=== PATIENT | male | born 1965 | race Caucasian/White ===

== ENCOUNTER → 2019-05-11 | Outpatient (REF) | payer BC ==
[2019-05-11 12:33] LABS: ALBUMIN 4.1 GM/DL (3.2-5.2); ALT/SGPT 35 U/L (12-78); BILIRUBIN,TOTAL 0.4 MG/DL (0.2-1.0); BLOOD UREA NITROGEN 16 MG/DL (7-18); CALCIUM LEVEL 8.9 MG/DL (8.5-10.1); CARBON DIOXIDE LEVEL 27 MEQ/L (21-32); CHLORIDE LEVEL 106 MEQ/L (98-107); CHOLESTEROL LEVEL 173 MG/DL (<200); CREATININE FOR GFR 1.06 MG/DL (0.70-1.30); GLOMERULAR FILTRATION RATE > 60.0 (>56); GLUCOSE, FASTING 195 MG/DL (70-100); HDL CHOLESTEROL 31 MG/DL (>40); LDL CHOLESTEROL 96 MG/DL (<100); NON-HDL-C 142 MG/DL; POTASSIUM SERUM 4.3 MEQ/L (3.5-5.1); SODIUM LEVEL 138 MEQ/L (136-145); TOTAL PROTEIN 7.8 GM/DL (6.4-8.2); TRIGLYCERIDES LEVEL 228 MG/DL (<150)
== END ==
LOC: M SFHCCLAY 09:08
PROVIDERS: ATTEND Family Medicine
DX: Z00.00 Encounter for general adult medical examination without abnormal findings (principal); Z83.3 Family history of diabetes mellitus; Z13.1 Encounter for screening for diabetes mellitus; Z82.49 Family history of ischemic heart disease and other diseases of the circulatory system; Z13.220 Encounter for screening for lipoid disorders; Z80.42 Family history of malignant neoplasm of prostate; Z12.5 Encounter for screening for malignant neoplasm of prostate
CPT/HCPCS: 80053; 80061; G0103

== ENCOUNTER → 2019-05-13 | Outpatient (REF) | payer BC ==
[2019-05-13 13:09] LABS: HEMOGLOBIN A1c 9.2 %
[2019-05-13 13:27] LABS: CREATININE, URINE 60.3 MG/DL; MALB URINE SIEMENS 5.1 MG/L; MAU/CREAT RATIO 8.4 MCG/MG (0.0-30.0)
== END ==
LOC: M SFHCCLAY 08:01
PROVIDERS: ATTEND Family Medicine
DX: R73.01 Impaired fasting glucose (principal); R73.9 Hyperglycemia, unspecified

== ENCOUNTER → 2019-08-30 | Outpatient (REF) | payer BC ==
[2019-08-30 11:53] LABS: BLOOD UREA NITROGEN 18 MG/DL (7-18); CALCIUM LEVEL 8.7 MG/DL (8.5-10.1); CARBON DIOXIDE LEVEL 27 MEQ/L (21-32); CHLORIDE LEVEL 107 MEQ/L (98-107); CREATININE FOR GFR 0.93 MG/DL (0.70-1.30); GLOMERULAR FILTRATION RATE > 60.0 (>56); GLUCOSE, FASTING 112 MG/DL (70-100); POTASSIUM SERUM 4.6 MEQ/L (3.5-5.1); SODIUM LEVEL 142 MEQ/L (136-145)
== END ==
LOC: M SFHCCLAY 07:17
PROVIDERS: ATTEND Family Medicine
DX: E11.9 Type 2 diabetes mellitus without complications (principal)

== ENCOUNTER → 2019-12-13 | Outpatient (REF) | payer BC ==
[2019-12-13 13:14] LABS: BLOOD UREA NITROGEN 16 MG/DL (7-18); CALCIUM LEVEL 8.8 MG/DL (8.5-10.1); CARBON DIOXIDE LEVEL 30 MEQ/L (21-32); CHLORIDE LEVEL 106 MEQ/L (98-107); CREATININE FOR GFR 1.02 MG/DL (0.70-1.30); GLOMERULAR FILTRATION RATE > 60.0 (>56); GLUCOSE, FASTING 122 MG/DL (70-100); POTASSIUM SERUM 4.7 MEQ/L (3.5-5.1); SODIUM LEVEL 141 MEQ/L (136-145)
[2019-12-13 13:59] LABS: HEMOGLOBIN A1c 6.2 %
== END ==
LOC: M LABDRAWC 11:28
PROVIDERS: ATTEND Family Medicine
DX: E11.9 Type 2 diabetes mellitus without complications (principal)

== ENCOUNTER → 2020-03-03 | Outpatient (REF) | payer BC ==
[2020-03-03 12:06] LABS: HEMOGLOBIN A1c 6.3 %
[2020-03-03 12:18] LABS: BLOOD UREA NITROGEN 15 MG/DL (7-18); CALCIUM LEVEL 9.2 MG/DL (8.5-10.1); CARBON DIOXIDE LEVEL 28 MEQ/L (21-32); CHLORIDE LEVEL 106 MEQ/L (98-107); CREATININE FOR GFR 0.94 MG/DL (0.70-1.30); GLOMERULAR FILTRATION RATE > 60.0 (>56); GLUCOSE, FASTING 109 MG/DL (70-100); POTASSIUM SERUM 4.2 MEQ/L (3.5-5.1); SODIUM LEVEL 139 MEQ/L (136-145)
== END ==
LOC: M SFHCCLAY 08:26
PROVIDERS: ATTEND Family Medicine
DX: E11.9 Type 2 diabetes mellitus without complications (principal)

== ENCOUNTER → 2020-06-05 | Outpatient (REF) | payer BC ==
[2020-06-05 13:13] LABS: BLOOD UREA NITROGEN 19 MG/DL (7-18); CALCIUM LEVEL 9.3 MG/DL (8.5-10.1); CARBON DIOXIDE LEVEL 29 MEQ/L (21-32); CHLORIDE LEVEL 107 MEQ/L (98-107); CHOLESTEROL LEVEL 92 MG/DL (<200); CHOLESTEROL RISK RATIO 3.066 (<5); CREATININE FOR GFR 1.03 MG/DL (0.70-1.30); GLOMERULAR FILTRATION RATE > 60.0 (>56); GLUCOSE, FASTING 160 MG/DL (70-100); HDL CHOLESTEROL 30 MG/DL (>40); LDL CHOLESTEROL 40 MG/DL (<100); NON-HDL-C 62 MG/DL; POTASSIUM SERUM 5.1 MEQ/L (3.5-5.1); SODIUM LEVEL 143 MEQ/L (136-145); TRIGLYCERIDES LEVEL 112 MG/DL (<150)
[2020-06-05 13:24] LABS: MALB URINE SIEMENS 6.7 MG/L; MAU/CREAT RATIO 3.8 MCG/MG (0.0-30.0)
[2020-06-05 13:36] LABS: HEMOGLOBIN A1c 6.4 %
== END ==
LOC: M SFHCCLAY 07:50
PROVIDERS: ATTEND Family Medicine
DX: E78.5 Hyperlipidemia, unspecified (principal); E11.9 Type 2 diabetes mellitus without complications

== ENCOUNTER → 2020-08-25 | Outpatient (CLI) | payer BC ==
[~2020-08-25] MED LIST: ATOR1TAB21; METF10004; SYMB80INH
== END ==
LOC: M LABSMTC 10:04
PROVIDERS: ATTEND Anesthesiology
DX: Z01.812 Encounter for preprocedural laboratory examination (principal); Z20.822 Contact with and (suspected) exposure to COVID-19

== ENCOUNTER 2020-08-30 07:42 | Day surgery (SDC) | payer BC ==
[~2020-08-30] VITALS: Ht 165.1 cm; Wt 89.8 kg
[~2020-08-30 07:42] MED LIST changes: +NS 1,000 ML IV ONE; +propofoL 200 MG/20 ML VIAL As Ordered ONE
[2020-08-30] MEDS ORDERED: LIDOCAINE 2% 100MG/5ML SDV (FOR ANES.) As Ordered ONE (08:22)
--- NOTE | 2020-08-30 09:20 | ROOR ---
Patient Name: Arturo Roca Procedure Date: 08/30/2020 8:54 AM Date of : 1965 Age: 54 Room: [facility] Gender: Male Note Status: Finalized Procedure: Colonoscopy Indications: Screening for colorectal malignant neoplasm Providers: Sher Shelton DO Referring MD: Rachel REYES DO Requesting Provider: Medicines: Propofol per Anesthesia Complications: No immediate complications. Procedure: Pre-Anesthesia Assessment: - Prior to the procedure, a History and Physical was performed, and patient medications and allergies were reviewed. The patient is competent. The risks and benefits of the procedure and the sedation options and risks were discussed with the patient. All questions were answered and informed consent was obtained. Patient identification and proposed procedure were verified by the physician, the nurse, the manufacturing operations manager and the reliability technicians in the endoscopy suite. Mental Status Examination: alert and oriented. Airway Examination: normal oropharyngeal airway and neck mobility. Respiratory Examination: clear to auscultation. CV Examination: normal. Prophylactic Antibiotics: The patient does not require prophylactic antibiotics. Prior Anticoagulants: The patient has taken no previous anticoagulant or antiplatelet agents. ASA Grade Assessment: II - A patient with mild systemic disease. After reviewing the risks and benefits, the patient was deemed in satisfactory condition to undergo the procedure. The anesthesia plan was to use monitored anesthesia care (MAC). Immediately prior to administration of medications, the patient was re-assessed for adequacy to receive sedatives. The heart rate, respiratory rate, oxygen saturations, blood pressure, adequacy of pulmonary ventilation, and response to care were monitored throughout the procedure. The physical status of the patient was re-assessed after the procedure. The Colonoscope was introduced through the anus and advanced to the cecum, identified by appendiceal orifice and ileocecal valve. The colonoscopy was performed without difficulty. The patient tolerated the procedure well. Findings: Non-bleeding internal hemorrhoids were found during retroflexion. The hemorrhoids were mild and Grade II (internal hemorrhoids that prolapse but reduce spontaneously). Impression: - Non-bleeding internal hemorrhoids. - No specimens collected. Recommendation: - Patient has a contact number available for emergencies. The signs and symptoms of potential delayed complications were discussed with the patient. Return to normal activities tomorrow. Written discharge instructions were provided to the patient. - Repeat colonoscopy in 5-10 years for screening purposes. - Return to my office PRN. Procedure Code(s): --- Professional --- G0121, Colorectal cancer screening; colonoscopy on individual not meeting criteria for high risk Diagnosis Code(s): --- Professional --- Z12.11, Encounter for screening for malignant neoplasm of colon K64.1, Second degree hemorrhoids CPT copyright 2019 [employer]. All rights reserved. The codes documented in this report are preliminary and upon wheel borer review may be revised to meet current compliance requirements. Sher Shelton DO 08/30/2020 9:19:57 AM Electronically signed by Sher Shelton DO Number of Addenda: 0 Note Initiated On: 08/30/2020 8:54 AM Estimated Blood Loss: Estimated blood loss: none.
[2020-08-30 09:35] VITALS: BP 121/66
== END 2020-08-30 09:40 | disposition home or self-care (01) ==
LOC: M OPP 07:42
PROVIDERS: ATTEND Surgery
DX: Z12.11 Encounter for screening for malignant neoplasm of colon (principal); K64.1 Second degree hemorrhoids; E11.9 Type 2 diabetes mellitus without complications; G47.30 Sleep apnea, unspecified; Z79.84 Long term (current) use of oral hypoglycemic drugs; Z79.899 Other long term (current) drug therapy

== ENCOUNTER → 2020-09-13 | Outpatient (CLI) | payer BC ==
[~2020-09-13] MED LIST changes: -NS 1,000 ML IV ONE; -propofoL 200 MG/20 ML VIAL As Ordered ONE
--- NOTE | 2020-09-19 14:59 | SLEEPHOME ---
DATE: 09/13/2020 ORDERED BY: LUZ ELENA Francisco Diagnostic home sleep testing was performed due to concern for the obstructive sleep apnea syndrome in this patient with a history of excessive somnolence and nonrestorative sleep. For testing, a nocturnal T3 respiratory monitoring device was used. Continuous record was made of pulse, oxygen saturation, air flow, chest and abdominal strain, and body position. Nine hours and 59 minutes of data were reviewed. There were 6 hours and 45 minutes marked as time in bed. During the interval marked time in bed, there were 35 respiratory events identified of 10 seconds in duration or greater for a respiratory event index of 5.2. The events were primarily obstructive and associated with the supine position. Baseline pulse rate was 72. Pulse rate ranged 58 to 96. Baseline saturation was 94%. Lowest oxygen saturation 89%. IMPRESSION: Abnormal home sleep testing with repetitive respiratory events and oxygen desaturations to 89% with a respiratory event index of 5.2 is consistent with the obstructive sleep apnea syndrome. RECOMMENDATION: As the events were associated with the supine posture, sleep position retraining for avoidance of the supine posture is recommended. Should sleep symptoms persist, referral for formal sleep evaluation is recommended. cc: ROSIBEL REYES DO
== END ==
LOC: M SLEEP HO 10:26
PROVIDERS: ATTEND Physician Assistant
DX: R40.0 Somnolence (principal); R06.83 Snoring; G47.30 Sleep apnea, unspecified

== ENCOUNTER → 2020-10-20 | Outpatient (CLI) | payer BC ==
--- NOTE | 2020-10-24 16:44 | SLEEPCENT ---
NOCTURNAL POLYSOMNOGRAPHY DATE: 10/20/2020 ORDERED BY: LUZ ELENA Francisco Nocturnal polysomnography was performed for the titration of pressure therapy in this patient with a clinical diagnosis of obstructive sleep apnea syndrome supported by home testing, revealing a respiratory event index of 5.2. For testing a ResMed AirFit F20 full face mask of medium size was used, 4 cm of water pressure were applied to the circuit, and the lights were extinguished. 7 hours and 24 minutes of data were reviewed. There were 310.5 minutes of sleep identified. Sleep latency was normal at 16.5 minutes. REM sleep was somewhat delayed at 126.5 minutes. Sleep architecture was fairly good with two REM cycles. A period of wake late in the study reduced sleep efficiency to 71%. The electrocardiogram showed a sinus rhythm throughout with an average heart rate of 65 beats per minute. EEG showed normal waveforms for wake and sleep. Respiratory events were fully palliated with CPAP at a pressure of 11. IMPRESSION: Obstructive sleep apnea syndrome (G47.33). RECOMMENDATION: Nightly use of pressure therapy 11 cm of water.
== END ==
LOC: M SLEEP 20:00
PROVIDERS: ATTEND Physician Assistant
DX: G47.33 Obstructive sleep apnea (adult) (pediatric) (principal)

== ENCOUNTER → 2020-11-28 | Outpatient (REF) | payer BC ==
[2020-11-28 12:52] LABS: HEMOGLOBIN A1c 7.1 %
[2020-11-28 12:53] LABS: BLOOD UREA NITROGEN 17 MG/DL (7-18); CALCIUM LEVEL 8.9 MG/DL (8.5-10.1); CARBON DIOXIDE LEVEL 28 MEQ/L (21-32); CHLORIDE LEVEL 106 MEQ/L (98-107); GLOMERULAR FILTRATION RATE > 60.0 (>56); GLUCOSE, FASTING 144 MG/DL (70-100); POTASSIUM SERUM 4.7 MEQ/L (3.5-5.1); SODIUM LEVEL 138 MEQ/L (136-145)
== END ==
LOC: M SFHCCLAY 07:14
PROVIDERS: ATTEND Family Medicine
DX: E11.9 Type 2 diabetes mellitus without complications (principal); Z80.42 Family history of malignant neoplasm of prostate; Z12.5 Encounter for screening for malignant neoplasm of prostate
CPT/HCPCS: 80048; 83036; G0103

== ENCOUNTER → 2020-11-29 | Outpatient (REF) | payer BC | LOC: M SFHCCLAY 07:30 | PROVIDERS: ATTEND Family Medicine | DX: Z12.5 Encounter for screening for malignant neoplasm of prostate (principal); Z80.42 Family history of malignant neoplasm of prostate; Z53.8 Procedure and treatment not carried out for other reasons ==

== ENCOUNTER → 2021-06-04 | Outpatient (REF) | payer BC ==
[2021-06-04 12:07] LABS: BLOOD UREA NITROGEN 19 MG/DL (7-18); CALCIUM LEVEL 9.1 MG/DL (8.5-10.1); CARBON DIOXIDE LEVEL 27 MEQ/L (21-32); CHLORIDE LEVEL 106 MEQ/L (98-107); CHOLESTEROL LEVEL 108 MG/DL (<200); CHOLESTEROL RISK RATIO 3.176 (<5); CREATININE FOR GFR 1.04 MG/DL (0.70-1.30); GLOMERULAR FILTRATION RATE > 60.0 (>56); GLUCOSE, FASTING 200 MG/DL (70-100); HDL CHOLESTEROL 34 MG/DL (>40); LDL CHOLESTEROL 39 MG/DL (<100); NON-HDL-C 74 MG/DL; POTASSIUM SERUM 4.8 MEQ/L (3.5-5.1); SODIUM LEVEL 138 MEQ/L (136-145); TRIGLYCERIDES LEVEL 173 MG/DL (<150)
[2021-06-04 12:11] LABS: MALB URINE SIEMENS 9.6 MG/L; MAU/CREAT RATIO 6.2 MCG/MG (0.0-30.0)
[2021-06-04 12:14] LABS: HEMOGLOBIN A1c 7.8 %
== END ==
LOC: M SFHCCLAY 07:15
PROVIDERS: ATTEND Family Medicine
DX: Z00.00 Encounter for general adult medical examination without abnormal findings (principal); E11.9 Type 2 diabetes mellitus without complications; E78.5 Hyperlipidemia, unspecified

== ENCOUNTER → 2022-07-11 | Outpatient (REF) | payer OTHER ==
[2022-07-11 12:01] LABS: HEMOGLOBIN A1c 6.3 % (4.0-6.0)
== END ==
LOC: M SFHCCLAY 07:17
PROVIDERS: ATTEND Nurse Practitioner Family
DX: E11.9 Type 2 diabetes mellitus without complications (principal); Z80.42 Family history of malignant neoplasm of prostate
CPT/HCPCS: 83036; G0103

== ENCOUNTER → 2023-03-03 | Outpatient (REF) | payer OTHER ==
[2023-03-03 12:10] LABS: HEMOGLOBIN A1c 7.1 % (4.0-6.0)
[2023-03-03 12:25] LABS: BLOOD UREA NITROGEN 19 MG/DL (9-23); CALCIUM LEVEL 9.8 MG/DL (8.5-10.1); CARBON DIOXIDE LEVEL 28 MMOL/L (20-31); CHLORIDE LEVEL 102 MMOL/L (98-107); CHOLESTEROL LEVEL 110 MG/DL (<200); CHOLESTEROL RISK RATIO 3.55 (<5); CREATININE FOR GFR 0.83 MG/DL (0.70-1.30); GLOMERULAR FILTRATION RATE > 60.0 (>56); GLUCOSE, FASTING 141 MG/DL (60-100); HDL CHOLESTEROL 30.9 MG/DL (>40); LDL CHOLESTEROL 55.5 MG/DL (<100); NON-HDL-C 79.1 MG/DL; POTASSIUM SERUM 4.5 MMOL/L (3.5-5.1); SODIUM LEVEL 138 MMOL/L (136-145); TRIGLYCERIDES LEVEL 118 MG/DL (<150)
== END ==
LOC: M SFHCCLAY 07:41
PROVIDERS: ATTEND Nurse Practitioner Family
DX: E78.5 Hyperlipidemia, unspecified (principal); E11.9 Type 2 diabetes mellitus without complications

== ENCOUNTER → 2023-03-27 | Outpatient (REF) | payer OTHER | LOC: M SFHCCLAY 11:15 | PROVIDERS: ATTEND Nurse Practitioner Family | DX: J06.9 Acute upper respiratory infection, unspecified (principal) ==